=== PATIENT | male | born 1985 ===

== ENCOUNTER 2017-10-26 22:29 | Emergency (ER) | payer MEDICAID ==
[2017-10-26 22:39] VITALS: BP 139/74; PULSE 68; TEMP 98; O2SAT 98
--- NOTE | 2017-10-26 22:41 | C.PDOC ---
History Of Present Illness 32 yo male come in for evaluation of Left 5th finger deformity sustained 3 days " hit something". Pt sts, pain is localized, " only to touch". Otherwise, denies weakness, sensory or vascular deficits to injured finger. Ambulate to Ed for evaluation, not in any apparent distress. Time Seen by Provider: 10/26/17 22:31 History Per: Patient Onset/Duration Of Symptoms: Days (3), Sudden Onset Past Medical History Reviewed: Historical Data, Nursing Documentation, Vital Signs Vital Signs: Last Vital Signs Temp 98.0 F 10/26/17 22:37 Pulse 68 10/26/17 22:37 Resp 20 10/26/17 23:19 BP 139/74 10/26/17 22:37 Pulse Ox 98 10/26/17 22:37 - Medical History PMH: No Chronic Diseases Family History: States: No Known Family Hx - Social History Hx Tobacco Use: Yes - Immunization History Hx Tetanus Toxoid Vaccination: No Hx Pneumococcal Vaccination: No Review Of Systems Except As Marked, All Systems Reviewed And Found Negative. Constitutional: Negative for: Fever, Chills Musculoskeletal: Positive for: Hand Pain (Left 5th finger pain) Skin: Positive for: Bruising Neurological: Negative for: Weakness, Numbness Physical Exam - Physical Exam Appears: Well, Non-toxic, No Acute Distress Skin: Normal Color, Warm Extremity: Normal ROM (left hand), Capillary Refill (less than 2 sec left hand) , Deformity (over Left 5th DIPJ) Neurological/Psych: Oriented x3, Normal Speech, Normal Motor, Normal Sensation, Normal Reflexes ED Course And Treatment - Other Rad Left 5th finger X-Ray: Interpreted by Me, Viewed By Me Interpretation: (+) proximal aspect left distal 5th phalanx fx, intra-articular Progress Note: On re-eval, pt is afebrile, hemodynamicaly stable. Non-toxic. Left hand: exam c/w left 5th DIPJ deformity with mild discomfort on FAROM over injured joint. No neurovascular deficits distally. Imaging review (+) distal left 5th fx. Finger splint applied. Pt advised anf ref. guy F/u with hand specialsit in 2-3 days for re-eavl. return if any new changes. Disposition Counseled Patient/Family Regarding: Studies Performed, Diagnosis, Need For Followup, Rx Given - Disposition Referrals: Todd Mckeon MD [Staff Provider] - [facility] [Outside] Disposition: HOME/ ROUTINE Disposition Time: 22:55 Condition: STABLE Additional Instructions: Splint Follow up with hand specialist in 11-2 days for re-evaluation. return to ED if any worsening or new changes. Instructions: Finger Fracture Forms: [facility] (French) - Clinical Impression Clinical Impression: Finger fracture
[2017-10-26 23:20] VITALS: RESP 20
--- NOTE | 2017-10-27 08:18 | RAD ---
PROCEDURE: Left small finger radiographs. HISTORY: injury COMPARISON: None. TECHNIQUE: AP radiograph of the left hand, as well as spot oblique and lateral images of left small finger were obtained. FINDINGS: LEFT SMALL FINGER: Ulnar and dorsal displaced intra-articular fracture of the ulnar base of the 5th distal phalanx. JOINTS: Otherwise unremarkable. SOFT TISSUES: Soft tissue swelling adjacent to the 5th distal interphalangeal joint. OTHER FINDINGS: None. IMPRESSION: Displaced intra-articular fracture of the base of the 5th distal phalanx.
== END 2017-10-26 23:19 | disposition home or self-care (01) ==
LOC: C.ER 22:29
DX: S62.637A Displaced fracture of distal phalanx of left little finger, initial encounter for closed fracture (principal); W22.8XXA Striking against or struck by other objects, initial encounter; Y92.9 Unspecified place or not applicable